=== PATIENT | female | born 1970 | race Two or more races ===

== ENCOUNTER 2021-06-01 16:54 | Emergency (ER) | payer OTHER ==
[~2021-06-01] VITALS: Ht 170.2 cm; Wt 91.6 kg
[2021-06-01 18:42] VITALS: BP 139/88
[2021-06-01] MEDS ORDERED: guaiFENesin-DM 100/10mg/5ml SYR PO ONE (18:45)
== END 2021-06-01 20:47 | disposition home or self-care (01) ==
LOC: ER 16:54
DX: U07.1 COVID-19 (principal); J12.9 Viral pneumonia, unspecified; E66.9 Obesity, unspecified; Z68.31 Body mass index [BMI] 31.0-31.9, adult
CPT/HCPCS: 36415; 71045; 87426